=== PATIENT | female | born 1990 | race Caucasian/White ===

== ENCOUNTER 2016-07-30 12:37 | Emergency (ER) | payer OTHER ==
[~2016-07-30] VITALS: Ht 165.1 cm; Wt 111.4 kg
[~2016-07-30 12:37] MED LIST: DOCO200C5 PO
[2016-07-30 12:38] VITALS: BP 138/90; PULSE 105; RESP 18; O2SAT 100
--- NOTE | 2016-07-30 12:45 | ED.REPORT ---
HPI-Preg Under 20 Weeks Date of Service Jul 30, 2016 ED Provider: Constantin Stratton Patient is a 26 year old female who is 10 weeks who presents to the ED complaining of light abnormal vaginal bleeding. Associated symptoms include vomiting (which she attributes to morning sickness) and mild menstrual-like cramping. She denies dysuria, diarrhea, cough, fever, or any other symptoms. She had an OB check up last week. Nursing Notes Stated Complaint: BLEEDING/10WKS Chief Complaint: Female Abdominal Pain Allergies: Coded Allergies: No Known Allergies (Unverified , 02/11/16) Scheduled Docosahexanoic Acid ( Dha) 200 Mg Capsule 200 MG PO DAILY General Time Seen by Provider: 12:40 Chief Complaint Vaginal bleeding Context: : Known 1st trim Hx Obtained From: Patient Arrived By: Walk-in Recent Healthcare: Recent doctor visit Past Medical History Past Medical History Notes: Past Medical History IUD failure resulting in Past Surgical History denies Smoking History Unknown if Ever Smoker Social History Other Social History: Good social support, Ambulatory Status Independent Review of Systems Constitutional: Denies: Fever Respiratory: Denies: Non-productive cough GI: Reports: Abdominal pain, Vomiting, Denies: Diarrhea Female: Reports: , Vaginal bleeding - abnl, Denies: Dysuria Complete sys rev & neg: except as marked. Physical Exam Initial Vital Signs Vital Signs (First) Date Time Temp Pulse Resp B/P Pulse Ox O2 Delivery O2 Flow Rate FiO2 07/30/16 12:38 36.2 105 18 138/90 100 Initial VS: Reviewed Head / Eyes: Atraumatic, Normocephalic Neck: Full range of motion Respiratory: No respiratory distress Skin: Warm, Dry Neurologic: Alert, Oriented, Nonfocal Psychiatric: Mood/affect normal, Behavior normal, Normal thought content General/Constitutional: Awake, Alert, Well developed Abdomen: Atraumatic, Non-tender Female Genitourinary: Exam deferred : FHT present by U/S, movement present Interpretation & Diagnostics Lab Results Interpretation Lab Results Interpretation: Urine not indicative of UTI US Focused OB Exam Performed by: ED physician Exam Interpreted by: ED physician Indication: Vaginal bleeding Findings: Intrauterine preg present Interpretation: Intrauterine Re-Eval/Medical Decision Med Decision/Clinical Course Patient blood type A-, mini dose RhoGAM administered. Re-Evaluation/Progress : Time of Eval: 13:13 Re-Evaluation/Progress Note: Discussed lab results. Discussed plan for discharge. Patient understands and agrees with plan. All questions addressed at this time. Counseled Regarding: Diagnosis, Lab results, Need for follow-up, When/why to return to ED Discharge & Departure Primary Impression: Vaginal bleeding in patient at less than 20 weeks gestation Disposition: Home Discharge Condition All VS Reviewed: Yes Condition: Stable Patient Instructions: (ED) Additional Instructions: Thank you for entrusting us with your care. There is no dangerous cause discovered for your bleeding at this time. No evidence of urinary tract infection. Your baby looks good on the ultrasound. RhoGAM administered in the emergency department today (mini dose). Call your primary doctor tomorrow to inform them of your visit. Return to the emergency department if you experience increased bleeding, cramping, or any other new or worsening symptoms. Referrals: Melita Spaulding MD (PCP) Scribe Attestation Portions of this note were transcribed by Eliezer Fontaine. I, Dr. Stratton personally performed the history, physical exam and medical decision-making; I reviewed and confirmed the accuracy of the information in the transcribed note. Signed by: Eliezer Fontaine 07/30/16, 1315 copies to: Melita Spaulding MD, Kirk H MD Jul 30, 2016 12:45 ELIEZER FONTAINE Jul 30, 2016 12:51
[2016-07-30] MEDS ORDERED: Rho(D) Immune Globulin 50 mCg Syringe IM ONE (13:05)
[2016-07-30 13:55] VITALS: BP 128/78; PULSE 95; RESP 16; O2SAT 99
== END 2016-07-30 13:56 | disposition home or self-care (01) ==
LOC: SED 12:37
DX: O20.9 Hemorrhage in early pregnancy, unspecified (principal); O21.0 Mild hyperemesis gravidarum; Z3A.10 10 weeks gestation of pregnancy

== ENCOUNTER 2016-07-30 20:02 | Emergency (ER) | payer OTHER ==
[~2016-07-30] VITALS: Ht 165.1 cm; Wt 111.4 kg
[2016-07-30 20:20] VITALS: BP 145/102; PULSE 108; RESP 22; O2SAT 99
--- NOTE | 2016-07-30 21:12 | ED.REPORT ---
HPI- Female Date of Service Jul 30, 2016 ED Provider: Favian Flores DO Pt is a 26 y.o. female who is approximately 10 weeks who presents to the ED c/o abnormal vaginal bleeding onset 1800 today. Pt was seen in the ED earlier today and an US was performed and was reportedly normal, with FHT and movement. Pt also received a RhoGAM injection. Around 1800 today pt began to have excessive vaginal bleeding with clots so she decided to return. She claims the sx are similar to her prior miscarriage. Pt reports having contractions earlier today, but claims it has resolved. She also reports sexual intercourse within the last 48 hours. Nursing Notes Stated Complaint: POSS MISCARRIAGE,10 WEEKS Chief Complaint: Female Abdominal Pain Nursing Notes Reviewed: Yes Allergies: Coded Allergies: No Known Allergies (Unverified , 02/11/16) Scheduled Docosahexanoic Acid ( Dha) 200 Mg Capsule 200 MG PO DAILY General Time Seen by MD: 21:10 Chief Complaint Vaginal bleeding... (Moderate) Hx Obtained From: Patient Arrived By: Walk-in Sudden in Onset?: Yes Onset Occurred: 1 - 4 hours ago Context of Onset: , 1st trimester Symptom Duration: Since onset Location: : Suprapubic Quality: Cramping, Painful Severity: Current: Pain level 6 out of 10 Recent Healthcare: Recent doctor visit Similar Sx Previous: Yes Past Medical History Past Medical History Notes: Past Medical History IUD failure resulting in Past Surgical History denies Smoking History Unknown if Ever Smoker Social History Other Social History: Good social support, Ambulatory Status Independent Review of Systems Constitutional: Denies: Chills, Fever GI: Denies: Nausea, Vomiting Female: Reports: Pelvic pain, , Vaginal bleeding - abnl Complete sys rev & neg: except as marked. Physical Exam Initial Vital Signs Vital Signs (First) Date Time Temp Pulse Resp B/P Pulse Ox O2 Delivery O2 Flow Rate FiO2 07/30/16 20:20 37.3 108 22 145/102 99 07/30/16 23:00 Room Air Initial VS: Reviewed Head / Eyes: Atraumatic, Normocephalic Extremities: Vascular intact, Neuro intact Skin: Warm, Dry, No cyanosis Neurologic: Alert, Oriented, Nonfocal Psychiatric: Mood/affect normal, Behavior normal, Normal thought content Female Genitourinary: Color Mixer present Vaginal Bleeding / Discharge: Negative: Tissue present Pelvic Exam: Positive: Os is open (fingertip) No signs of active labor Blood in vault with no active bleeding General/Constitutional: Awake, Alert, No acute distress, Well appearing, Well developed, Well hydrated, Well nourished, Not toxic appearing Respiratory / Chest: Atraumatic, Breath sounds NL, Breath sounds = bilat, No respiratory distress Cardiovascular: Heart rate NL, Regular rhythm, Heart sounds NL, Peripheral circulation NL Abdomen: Atraumatic, Soft, Non-tender, No distention : FHT present by U/S, movement present Bedside US shows amniotic fluid, movement, and present FHT's. Interpretation & Diagnostics Lab Results Interpretation Result Diagram: 07/30/16223407/30/162234 Test 07/30/16 22:35 White Blood Count 11.3th/mm3 (3.8-10.1) Red Blood Count 4.29mil/mm3 (3.90-5.20) Hemoglobin 11.1g/dL (12.0-15.6) Hematocrit 33.5% (35.0-46.0) Mean Corpuscular Volume 78.1fL (81-100) Mean Corpuscular Hemoglobin 25.9pg (27.0-35.0) Mean Corpuscular Hemoglobin Concent 33.1% (32.0-37.0) Red Cell Distribution Width 17.5% (12.3-15.4) Platelet Count 267bil/L (150-400) Sodium Level 137mEq/L (134-144) Potassium Level 4.0mEq/L (3.5-5.2) Chloride Level 101mEq/L (97-108) Carbon Dioxide Level 21mmol/L (18-29) Blood Urea Nitrogen 8mg/dL (6-20) Creatinine 0.53mg/dL (0.57-1.00) Estimat Glomerular Filtration Rate 200mL/min (>59) Glucose Level 95mg/dL (60-99) Calcium Level 8.8mg/dL (8.5-10.1) Total Bilirubin 0.2mg/dL (0.0-1.2) Aspartate Amino Transf (AST/SGOT) 13U/L (0-50) Alanine Aminotransferase (ALT/SGPT) 13U/L (0-32) Alkaline Phosphatase 54U/L (25-150) Total Protein 6.5g/dL (6.4-8.4) Albumin 3.6g/dL (3.4-5.0) HCG Beta Subunit [id number]/mL Hold Bishop Top Tube Received (Received) Re-Eval/Medical Decision Med Decision/Clinical Course Unfortunately Kiya completed spontaneous . Initially things were looking reassuring she was only having bleeding and we could see movement on the ultrasound. Shortly thereafter she had rather intense cramping and she passed tissue, placenta and what I believe is the remainder of the products of conception. She felt much better. Repeat pelvic exam showed no active hemorrhage. There is nothing in the os. Tissue was sent to pathology. I do recommend Percocet for any further pain. Close outpatient follow-up. She is Rh- however she is artery received RhoGAM by Dr. Stratton yesterday. Source of Hx: Old records Re-Evaluation/Progress #1: Time of Eval: 22:20 Re-Evaluation/Progress Note: Pelvic exam performed with fingerprint technician present. Re-Evaluation/Progress #2: Time of Eval: 23:29 Re-Evaluation/Progress Note: Pt rechecked. She began to have increased camping. IV will be placed. Counseled Regarding: Diagnosis, Need for follow-up, When/why to return to ED Discharge & Departure Impression: Primary Impression: Spontaneous in first trimester Disposition: Home Discharge Condition All VS Reviewed: Yes Condition: No Change Patient Instructions: Spontaneous Miscarriage (ED) Additional Instructions: You had a spontaneous miscarriage while in the ED today. Take 1-2 Percocet every 6 hours as needed for the abdominal cramping. Call the referral public speaker for a follow-up appointment. Call tomorrow. Do not drive or drink alcohol or consume acetaminophen for taking the Percocet. Repeat after care instructions given. Referrals: Melita Spaulding MD (PCP) Beliaibchad Attestation Portions of this note were transcribed by Jinny Del Cid. I, Dr. Flores personally performed the history, physical exam and medical decision-making; I reviewed and confirmed the accuracy of the information in the transcribed note. Signed by : Mahi Dos Santos, 07/31/16 and 0110 copies to: Melita Spaulding MD, Todd P DO Jul 30, 2016 21:12 JINNY DEL CID Jul 30, 2016 21:21
[2016-07-30] MEDS ORDERED: oxyCODONE-Acetamin 5-325 mg Tablet PO ONE (21:30)
[2016-07-30] MEDS ORDERED: _oxyCODONE/APAP 5-325 mg Tablet PO PRN (22:35)
[2016-07-30] MEDS ORDERED: _Ondansetron ODT 4 mg Tablet PO PRN (22:35)
[2016-07-30 22:48] LABS: Mean Corpuscular Hemoglobin 25.9 pg (27.0-35.0); Mean Corpuscular Volume 78.1 fL (81-100)
[2016-07-30 23:00] VITALS: BP 124/76; PULSE 94; RESP 16; O2SAT 98
[2016-07-30] MEDS ORDERED: HYDROmorphone 0.5 mg/0.5 mL iSecure Syringe IVPUSH PRN (23:30)
[2016-07-31] MEDS ORDERED: Sodium Chloride LOK Flush 10 mL Syringe IVFLUSH SCH (00:30)
[2016-07-31 01:25] VITALS: BP 125/82; PULSE 89; RESP 16; O2SAT 96
--- NOTE | 2016-08-03 17:11 | PATH ---
SURGICAL PATHOLOGY Attending Physician:Melita Spaulding MD CASE STATUS: Signed Out PATIENT NAME: CATALINA TURPIN PID: [id number] : 1990 DATE COLLECTED:07/30/2016 00:00 SPECIMEN: 1: Products of conception 2: Products of conception CLINICAL HISTORY: SPONTANEOUS 1). PRODUCTS OF CONCEPTION 2). PRODUCTS OF CONCEPTION FINAL DIAGNOSIS: PRODUCTS OF CONCEPTION 1. PLACENTA AND MATERNAL DECIDUA: 1. THREE-VESSEL UMBILICAL CORD WITH NO FUNISITIS. 2. MEMBRANES NEGATIVE FOR CHORIOAMNIONITIS. 3. CHANGES CONSISTENT WITH CHRONIC ISCHEMIA TO PLACENTA INCLUDING HYPERMATURE CHORIONIC VILLI WITH INCREASED SYNCYTIAL KNOTS AND PATCHY INTERVILLOUS FIBRIN ASSOCIATED WITH FOCI OF AVASCULAR VILLI. 4. DECIDUITIS. 2. STILLBORN FETUS, CLINICAL HISTORY OF SPONTANEOUS 10 WEEKS: 1. RELATIVELY INTACT MALE FETUS WITH NO SIGNIFICANT DYSMORPHIC FEATURES OR OBVIOUS INTERNAL ANATOMIC ABNORMALITIES. 2. ORGANS WITH HISTOLOGIC IMMATURITY APPROPRIATE FOR GESTATIONAL AGE. ICD10 code Z37.1 GROSS DESCRIPTION: 1. Received unfixed, labeled with the patient' s name is a 90 gram, 14.0 x 8.0 cm portion of decidual tissue with an attached 4.0 x 4.0 x 1.0 cm placenta and attached, centrally inserted 6.0 x 0.2 cm apparent three vessel cord. The specimen is sectioned revealing dark red placental tissue with no obvious lesions identified. Insole Rasper sections are submitted in 2 cassettes. 2. Received fresh labeled with the patient's name is a mostly intact fetus. The tissue consists of collapsed head with bilateral eyes and mouth, tongue, and ears with no significant dysmorphic features. There are four extremities with five fingers on each hand, five toes on each foot, and an approximate 4 mm foot length. The crown-rump length is 3.4 cm. The ribs and vertebral column appear unremarkable. Assessment of internal organs shows a normal location of organs with soft, easily friable spleen and liver, and male genitalia. No obvious internal abnormalities. Insole Rasper sections are submitted in cassette 2A. ([id number]) MICRO DESCRIPTION: See diagnosis. ICD-9 CODES: CPT CODES: 1: 03338 2: 30107 Electronically Signed Out Ruby Pablo MD [facility] [address], [place] [address] Technical component performed at [facility], [facility] [address], [place], [address]
== END 2016-07-31 01:24 | disposition home or self-care (01) ==
LOC: SED 20:02
DX: O03.9 Complete or unspecified spontaneous abortion without complication (principal); Z3A.10 10 weeks gestation of pregnancy